=== PATIENT | female | born 1990 | race Caucasian/White ===

== ENCOUNTER 2017-03-17 15:34 | Emergency (ER) | payer MEDICAID ==
[2017-03-17 15:45] VITALS: BP 107/78
--- NOTE | 2017-03-17 16:22 | XRAY Preliminary Report ---
Exam: XR Ankle 3 View RT IMPRESSION: Normal ankle radiography. [facility] SITE ID: [id number]
--- NOTE | 2017-03-17 16:24 | XRAY Preliminary Report ---
Exam: XR Foot 3 View RT IMPRESSION: Normal foot radiography. [facility] SITE ID: [id number]
--- NOTE | 2017-03-17 16:27 | XRAY Report ---
EXAM: RIGHT ANKLE RADIOGRAPHY EXAM DATE: 03/17/2017 04:06 PM. CLINICAL HISTORY: Pain after a slamming injury in car door 2 days ago. COMPARISON: None. TECHNIQUE: 3 views. FINDINGS: Bones: Normal. No fractures or bone lesions. Joints: Normal. No effusion. No subluxations. The ankle mortise is normally aligned. Soft Tissues: Normal. No soft tissue swelling. IMPRESSION: Normal ankle radiography. [facility] Referring Provider Line: [phone] SITE ID: [id number]
--- NOTE | 2017-03-17 16:52 | ED Physician Documentation ---
PD HPI LOWER EXT INJURY - Stated complaint Stated Complaint: RT FOOT INJURY - Chief complaint Chief Complaint: Ext Problem - History obtained from History obtained from: Patient - History of Present Illness PD HPI LOW EXT INJURY LOCATION: Other (She crushed her right ankle while closing the car door yesterday after work. She is able to walk and bear weight. No other injuries. Pain is moderate despite taking ibuprofen.) Review of Systems Constitutional: reports: Reviewed and negative Cardiac: reports: Reviewed and negative Respiratory: reports: Reviewed and negative PD PAST MEDICAL HISTORY - Past Medical History Past Medical History: No - Past Surgical History General: Cholecystectomy Ortho: Carpal Tunnel surgery - Present Medications Home Medications: Ambulatory Orders Medication Instructions Recorded Confirmed HYDROcod/ACETAM 5/325 [Odon 5/325] 1 - 2 ea PO Q6H PRN #10 tablet 03/17/17 Melatonin/Pyridoxine [Melatonin 5 2 tab PO DAILY 03/17/17 03/17/17 mg Tablet] - Allergies Allergies/Adverse Reactions: Allergies Allergy/AdvReac Type Severity Reaction Status Date / Time almond Allergy Anaphylaxis Verified 03/17/17 15:46 contact metal agent AdvReac Hives Verified 03/17/17 15:46 latex AdvReac Hives Verified 03/17/17 15:46 silicone AdvReac Hives Verified 03/17/17 15:46 Sulfa (Sulfonamide AdvReac Hives Verified 03/17/17 15:46 Antibiotics) - Social History Does the pt smoke?: Yes Smoking Status: Current every day smoker Does the pt drink ETOH?: No Does the pt have substance abuse?: No - Immunizations Immunizations are current?: Yes PD ED PE NORMAL - Vitals Vital signs reviewed: Yes - General General: Alert and oriented X 3, No acute distress - Extremities Extremities: Other (She is very tender over the lateral ankle and there is a bruise over the medial ankle, there is no foot tenderness, no proximal fibular tenderness, Achilles function is normal.) - Neuro Neuro: Alert and oriented X 3, Normal speech Results - Vitals Vitals: Vital Signs - 24 hr 03/17/17 15:40 Temperature 36.7 C Heart Rate 105 H Respiratory 20 Rate Blood Pressure 107/78 O2 Saturation 97 - Rads (name of study) X-ray right foot and ankle Radiology: EMP read contemporaneously (Negative) Departure - Departure Disposition: 01 Home, Self Care Clinical Impression: Crushing injury of ankle, right Qualifiers: Encounter type: initial encounter Qualified Code(s): S97.01XA - Crushing injury of right ankle, initial encounter Condition: Good Record reviewed to determine appropriate education?: Yes Instructions: ED Contusion Foot Prescriptions: HYDROcod/ACETAM 5/325 [Odon 5/325] 1 - 2 ea PO Q6H PRN #10 tablet PRN Reason: Pain Comments: Recheck with your physician in 1 week if not better. Do not drink or drive while taking narcotic pain medication. Note that many narcotic pain relievers also contain Tylenol/acetaminophen. Please ensure that your total dose of acetaminophen from all sources does not exceed 3 g (3000 mg) per day. You may get constipated while on this medication. Take a stool softener such as Colace twice a day while you are on it. Also add an [id number] laxative such as senna or MiraLAX on any day that you do not have a bowel movement. If you received a narcotic pain medication or sedative while in the emergency department, do not drive for the next 24 hours. Forms: Activity restrictions
--- NOTE | 2017-03-17 16:57 | XRAY Report ---
EXAM: RIGHT FOOT RADIOGRAPHY EXAM DATE: 03/17/2017 04:06 PM. CLINICAL HISTORY: Pain after slamming injury in car door several days ago. COMPARISON: None. TECHNIQUE: 3 views. FINDINGS: Bones: Normal. No fractures or bone lesions. Joints: Normal. No subluxations. Soft Tissues: Normal. No soft tissue swelling. IMPRESSION: Normal foot radiography. [facility] Referring Provider Line: [phone] SITE ID: [id number]
== END 2017-03-17 17:12 | disposition home or self-care (01) ==
LOC: ED 15:34
DX: S97.01XA Crushing injury of right ankle, initial encounter (principal); W20.8XXA Other cause of strike by thrown, projected or falling object, initial encounter; Y92.019 Unspecified place in single-family (private) house as the place of occurrence of the external cause; F17.200 Nicotine dependence, unspecified, uncomplicated
CPT/HCPCS: 99283